=== PATIENT | male | born 1965 | race Caucasian/White ===

== ENCOUNTER 2020-04-11 15:20 | Inpatient (IN) | payer BC ==
[~2020-04-11] VITALS: Ht 182.9 cm; Wt 121.0 kg
--- NOTE | 2020-04-11 15:32 | NUR ---
PT HAS PAIN PUMP TO LEFT LOWER ABD QUADRANT. WHEN RN ASKED PT WHAT MEDICATION IS IN PAIN PUMP PT STATED "NOTHING." AWAITING EVALUATION OF ERMD.
[2020-04-11] MEDS ORDERED: LOSARTAN (15:34)
[2020-04-11] MEDS ORDERED: NORVASC PO (15:34)
[2020-04-11] MEDS ORDERED: [UNRECOGNIZED DRUG - OTHER] (15:34)
[2020-04-11] MEDS ORDERED: OMEP20TA62 PO (15:35)
[2020-04-11] MEDS ORDERED: TRAM50TA2 PO (15:35)
[2020-04-11] MEDS ORDERED: MOBIC (15:35)
[2020-04-11] MEDS ORDERED: TRAZ50TA66 PO (15:36)
[2020-04-11] MEDS ORDERED: BUPR75TA6 PO (15:36)
--- NOTE | 2020-04-11 15:57 | NUR ---
ERMD AT BEDSIDE EVALUATING PT.
[2020-04-11] MEDS ORDERED: SODIUM CHLORIDE FLUSH 10ML SYR IVF ONE (16:00)
[2020-04-11] MEDS ORDERED: LORazepam 2 MG/ML, 1ML IVPush ONE (16:00)
[2020-04-11] MEDS ORDERED: LORazepam 2 MG/ML, 1ML ONE (16:00)
--- NOTE | 2020-04-11 16:36 | NUR ---
OKAY BY PT TO GIVE INFORMATION. 'S NUMBER [phone].
[2020-04-11 16:37] LABS: ALANINE AMINOTRANSFERASE 35 U/L (12-78); ALBUMIN 4.3 g/dL (3.4-5.0); ANION GAP 6 mmol/L (5-15); CHLORIDE 105 mmol/L (98-107); CREATININE 1.25 mg/dL (0.7-1.3)
[2020-04-11 16:41] LABS: ALKALINE PHOSPHATASE 100 U/L (45-117); BILIRUBIN,TOTAL 0.4 mg/dL (0.2-1.0); TOTAL PROTEIN 7.4 g/dL (6.4-8.2); TROPONIN I < 0.015 ng/mL (0.000-0.045)
[2020-04-11 16:42] LABS: AMPHETAMINE SCREEN, URINE Negative (Negative); BARBITURATE SCREEN, URINE Negative (Negative); BENZODIAZEPINE SCREEN, URINE Negative (Negative); CANNABINOID SCREEN, URINE Negative (Negative); COCAINE SCREEN, URINE Negative (Negative); METHADONE SCREEN, URINE Negative (Negative); OPIATE SCREEN, URINE Negative (Negative)
[2020-04-11 16:44] LABS: BASOPHILS % (AUTO) 0 % (0-1); EOSINOPHILS % (AUTO) 1 % (1-7); LYMPHOCYTES % (AUTO) 13 % (22-44); MEAN CORPUSCULAR HEMOGLOBIN 30.9 pg (27.5-34.5); MEAN CORPUSCULAR HGB CONC 33.7 g/dL (33.2-36.2); MEAN PLATELET VOLUME 7.2 fL (7.4-10.4); MONOCYTES % (AUTO) 10 % (2-9); NEUTROPHILS % (AUTO) 76 % (42-75); PLATELET COUNT 447 x10^3/uL (130-400); RED BLOOD COUNT 5.18 x10^6/uL (4.38-5.82); RED CELL DISTRIBUTION WIDTH 13.1 % (9.4-14.8)
[2020-04-11 17:00] LABS: MD NO
--- NOTE | 2020-04-11 17:24 | NUR ---
RN GOT BENTLEY OF LETICIA. LETICIA STATED THAT SHE IS "STUCK" IN [place] TRYING TO GET A TAXI TO [place]. 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 RN TOLD LETICIA SHE WILL CALL BACK ONCE A PLAN IS DECIDED.
--- NOTE | 2020-04-11 18:09 | NUR ---
RN UPDATED PT'S ON POC. PT TBAD.
--- NOTE | 2020-04-11 18:20 | NUR ---
PT UPDATED ON PLAN OF CARE. RN PROVIDED PT WITH 'S NUMBER. AWAITING FOR HOSPITALIST TO ADMIT PT.
--- NOTE | 2020-04-11 18:59 | NUR ---
REPORT RECIEVED FROM SOPHIE SALGUERO. PT STATES FEELING OK, AND PROVIDED PRIVACY TO USE URINAL
--- NOTE | 2020-04-11 19:00 | NUR ---
REPORT TO SOPHIE PEREZ.
--- NOTE | 2020-04-11 19:16 | NUR ---
THIS RN IN ROOM PRECEPTING TANIYA BARRIOS
--- NOTE | 2020-04-11 20:35 | NUR ---
pt provded water, ok per erp. awaiting admit order
[2020-04-11] MEDS ORDERED: ACETAMINOPHEN 500 MG TABLET ONE (22:07)
[2020-04-11] MEDS ORDERED: MAALOX/HYOSCYAMINE/LIDOCAINE 45 ML BTL ONE (22:08)
--- NOTE | 2020-04-11 22:20 | NUR ---
PT MEDICATED PER EMAR FOR PAIN AND GIVEN JUICE AND SANDWICH, OK PER ERP.
--- NOTE | 2020-04-11 22:22 | NUR ---
HOSP AT BEDSIDE
[2020-04-11] MEDS ORDERED: ACETAMINOPHEN 500 MG TABLET PO ONE (22:30)
[2020-04-11] MEDS ORDERED: MAALOX/HYOSCYAMINE/LIDOCAINE 45 ML BTL PO ONE (22:30)
--- NOTE | 2020-04-11 22:53 | NUR ---
REPORT GIVEN TO SOPHIE VALLE
[2020-04-11 23:07] VITALS: BP 164/95
[2020-04-12] MEDS ORDERED: ENALAPRILAT 1.25 MG/ML, 2ML IVPush PRN
[2020-04-12] MEDS ORDERED: MELATONIN 5 MG TABLET PO PRN
[2020-04-12] MEDS ORDERED: ONDANSETRON 2MG/ML, 2ML IVPush PRN
[2020-04-12] MEDS ORDERED: DOCUSATE 100 MG CAPSULE PO PRN
[2020-04-12] MEDS: HEPARIN 5,000 UNITS/ML, 1ML SQ SCH ×4 (01:03→23:29)
[2020-04-12 01:30] LABS: BASOPHILS % (AUTO) 0 % (0-1); EOSINOPHILS % (AUTO) 1 % (1-7); LYMPHOCYTES % (AUTO) 18 % (22-44); MEAN CORPUSCULAR HEMOGLOBIN 31.6 pg (27.5-34.5); MEAN PLATELET VOLUME 7.2 fL (7.4-10.4); MONOCYTES % (AUTO) 11 % (2-9); NEUTROPHILS % (AUTO) 70 % (42-75); PLATELET COUNT 437 x10^3/uL (130-400); RED BLOOD COUNT 4.97 x10^6/uL (4.38-5.82); RED CELL DISTRIBUTION WIDTH 13.1 % (9.4-14.8)
[2020-04-12 01:42] LABS: ANION GAP 6 mmol/L (5-15); CALCIUM 8.9 mg/dL (8.5-10.1); CHLORIDE 104 mmol/L (98-107); CHOLESTEROL, TOTAL 166 mg/dL (140-239); CREATININE 1.19 mg/dL (0.7-1.3); TRIGLYCERIDES 159 mg/dL (50-200); VLDL CHOLESTEROL 32 mg/dL (0-25)
[2020-04-12 01:43] LABS: MD NO
[2020-04-12 01:51] LABS: CHOL/HDL RATIO 3.8; HDL CHOL % 27 % (26-37); HDL CHOLESTEROL (DIRECT) 44 mg/dL (40-60); LDL CHOLESTEROL,CALCULATED 90 mg/dL (54-169); TROPONIN I < 0.015 ng/mL (0.000-0.045)
[2020-04-12 01:53] LABS: TROPONIN I < 0.015 ng/mL (0.000-0.045)
[2020-04-12] MEDS ORDERED: MELO10PO PO (06:58)
[2020-04-12] MEDS ORDERED: MULT-658 PO (06:58)
[2020-04-12] MEDS ORDERED: MAGN300C PO (06:58)
[2020-04-12] MEDS ORDERED: QUET25TA70 PEG (06:58)
[2020-04-12] MEDS ORDERED: LOSA100T14 PO (06:58)
[2020-04-12] MEDS ORDERED: ASCO120P2 PO (06:58)
[2020-04-12] MEDS ORDERED: CYAN100074 PO (06:58)
[2020-04-12] MEDS: OMEPRAZOLE 20 MG CAPSULE.DR PO SCH (07:51)
[2020-04-12 08:03] VITALS: BP 131/84
[2020-04-12] MEDS ORDERED: REGADENOSON 0.4 MG/5 ML SYRINGE ONE (08:40)
[2020-04-12] MEDS: HYDROmorphone 2 MG/ML, 1ML IVPush PRN ×2 (11:36→23:29)
[2020-04-12 15:30] VITALS: BP 130/82
[2020-04-12 15:31] VITALS: BP 146/99
[2020-04-12 15:32] VITALS: BP 121/83
[2020-04-12] MEDS: ACETAMINOPHEN 325 MG TABLET PO PRN (15:37)
[2020-04-12] MEDS ORDERED: OMNIPAQUE 350 MG/ML, 75ML BOTTLE ONE (17:40)
[2020-04-12 21:56] VITALS: BP 134/96
[2020-04-12 23:59] VITALS: BP 130/87
[2020-04-13 00:03] VITALS: BP 138/103
[2020-04-13 00:06] VITALS: BP 125/91
[2020-04-13 09:10] VITALS: BP 138/89
[2020-04-13 09:11] VITALS: BP 137/87
[2020-04-13 09:12] VITALS: BP 136/94
[2020-04-13] MEDS: OMEPRAZOLE 20 MG CAPSULE.DR PO SCH (09:31)
[2020-04-13] MEDS: HEPARIN 5,000 UNITS/ML, 1ML SQ SCH (09:32)
[2020-04-13] MEDS: ACETAMINOPHEN 325 MG TABLET PO PRN (12:09)
== END 2020-04-13 12:33 | disposition home or self-care (01) | DRG 313 ==
LOC: ED 18:32 → EDIP 21:48 → 5SO 23:04 → DCLOUNGE 04-13 12:26
PROVIDERS: ADMIT Internal Medicine; ATTEND Family Medicine
DX: R07.89 Other chest pain (principal); E66.01 Morbid (severe) obesity due to excess calories; D69.6 Thrombocytopenia, unspecified; I11.9 Hypertensive heart disease without heart failure; J32.0 Chronic maxillary sinusitis; Z77.22 Contact with and (suspected) exposure to environmental tobacco smoke (acute) (chronic); Z82.49 Family history of ischemic heart disease and other diseases of the circulatory system; Z82.5 Family history of asthma and other chronic lower respiratory diseases; Z83.3 Family history of diabetes mellitus; Z90.81 Acquired absence of spleen; Z68.36 Body mass index [BMI] 36.0-36.9, adult
CPT/HCPCS: 36415; 70450; 71045; 71260; 78452; 80048; 80053; 80061; 80307; 83036; 83735; 84100; 84443; 84484; 85025; 85379; 93005; 93017; 93306; 93356; 93880; 99285; G0378; J1170; J1644; J2785; Q9967; A9502; C9898; J2060